=== PATIENT | male | born 1935 | race Caucasian/White ===

== ENCOUNTER 2017-05-31 04:04 | Inpatient (IN) ==
[2017-05-31] MEDS: NS 1,000 ML IV SCH ×2 (04:04→12:20)
[2017-05-31] MEDS: DiphenhydrAMINE 50 MG/ML INJECTION IVP PRN ×2 (04:35→08:46)
[2017-05-31] MEDS ORDERED: MORPHINE SULFATE 2 MG SYRINGE IVP PRN (04:38)
[2017-05-31] MEDS ORDERED: ONDANSETRON 4 MG/2 ML INJECTION IVP PRN (04:40)
[2017-05-31] MEDS ORDERED: FAMOTIDINE PB 20 MG/50 ML BAG IV SCH (06:00)
[2017-05-31] MEDS: ENOXAPARIN 40 MG/0.4 ML INJECTION SQ SCH ×2 (06:12→12:19)
[2017-05-31] MEDS: METHYLPREDNISOLONE SOD SUCC 125mg/2ml INJECTION IVP SCH ×2 (06:13→19:22)
[2017-05-31] MEDS: INSULIN REGULAR, HUMAN 100 UNIT/ML INJECTION SQ PRN ×3 (06:26→22:43)
[2017-05-31 06:38] VITALS: BMI 41.4
--- NOTE | 2017-05-31 10:10 | History & Physical Report ---
History of Present Illness Date: 05/31/17 Chief complaint: swollen tongue, hives HPI: The patient is a very pleasant 82-year-old male who was admitted last night and seen by the telemedicine hospitalist. An H&P was placed on the chart but not in the computer because of scheduled computer downtime. The patient states that he was in his normal state of health until yesterday morning. He noticed itching on his buttocks and hips and his place some calamine lotion. Then last evening he felt itchy all over, developed hives and had some diarrhea. He then noticed his tongue was swollen and it was difficult to speak. He went into the emergency room in [place] and was treated with 0.5 mg of IM epinephrine, Solu-Medrol 125 mg IV push, Pepcid 20 mg IV push and Benadryl 50 mg IV push. The patient stated that he immediately had cessation of his itching and within an hour his tongue felt back to normal. He was then transferred to [facility]U for continued treatment and monitoring. Here he was continued on Solu-Medrol, IV famotidine, and IV Benadryl. This morning he developed hives and itching again and was given 25 mg of IV Benadryl with resolution of symptoms. He has not had any further problems with tongue swelling since initial treatment last night. He has not taken any new medications other than a salve that was placed on his back where he had an insect bite 10-12 days ago. There was an open area present that his had been dressing. They thought it might of been a spider bite. When he developed itching yesterday he thought he might of had flea bites and his dogs were treated with oral medication recently for fleas. They did not receive a topical treatment. The patient is on lisinopril and metformin as well as aspirin daily. He uses some eyedrops in his ears recently but has used this before without difficulties. He is on multiple supplements, none of which are new. He states the diarrhea he had yesterday was not necessarily uncommon for him. He states he did eat a few bites of hamburger yesterday which she thought tasted bad. His only ate a few bites as well and they thought it might have been spoiled. The patient also states that when he fills his pill box once a week he sneezes. Otherwise he has not had any allergic problems and never had symptoms like this before. Review of Systems - Constitutional Comments: The patient admits to shortness of breath with activity. He states that he has chronic low back pain and it makes it painful for him to stand up straight when he walks. He has sleep apnea but does not use his CPAP more than 2 or 3 nights a week. He frequently has alternating constipation and diarrhea but does not take any medication for this. He has slow urination related to prostate enlargement and recent diagnosis of prostate cancer. His urologist did not recommend treatment for the prostate cancer. Otherwise complains of review of systems is negative other than the above in history of present illness. FOR[facility]LY [facility] Patient Stated Medical History Cataracts Yes Hypertension Yes Sleep Apnea Yes Diabetes Mellitus Type 2 Yes Medical History Updates: Hypertension. Type 2 diabetes mellitus on metformin. Morbid obesity. Obstructive sleep apnea for which he has a CPAP but only uses 2 or 3 nights a week. Chronic low back pain. Prostate cancer-not requiring treatment at this time Surgical History: Bilateral carpal tunnel surgery, bilateral total knee replacement, bilateral cataract surgery Family History: Sister of liver cancer and she had alcoholism No known family history of allergy problems or angioedema - Social History Smoking status: Never smoker Substance use type: does not use Alcohol intake frequency: other (rare alcohol use) Social history: Patient wants his to make medical decisions if he is unable to make them himself Medications Home Medications Medication Instructions Recorded Confirmed Type Ascorbic Acid (Vitamin C) 2,000 mg PO DAILY #0 tab 03/24/14 History Fish Oil/Dha/Epa [Fish Oil 1,200 1 each PO DAILY #0 cap 03/24/14 History mg Fish Oil] Ginkgo Biloba Extract (Ginkgo 60 mg PO DAILY #0 cap 03/24/14 History Biloba) Metformin HCl 850 mg PO BID #1 tab 03/24/14 History Saw [place] Fruit [Saw [place]] 1,800 mg PO BID #0 cap 03/24/14 History Docusate Sodium [Colace] 1 cap PO PRN #0 cap 06/11/14 History Lisinopril 1 tab PO DAILY #0 tab 06/11/14 History Aspirin [Aspir 81] 1 tab PO DAILY #0 tab 01/27/15 History Multivitamin (Daily Vitamin) 1 tab PO DAILY #0 01/27/15 History Acetaminophen 1 - 2 tab PO Q6H PRN #0 tab 01/28/15 History Allergies Allergy/AdvReac Type Severity Reaction Status Date / Time No Known Drug Allergies Allergy Unknown Verified 01/28/15 12:43 Exam Vital Signs: Temperature 98.7 F 05/31/17 08:00 Pulse Rate 77 05/31/17 08:30 Respiratory Rate 18 05/31/17 08:00 Blood Pressure 161/80 H 05/31/17 08:30 Pulse Oximetry 95 05/31/17 08:00 Oxygen Delivery Method Nasal Cannula Oxygen Flow Rate 2 Height/Weight/BMI: Height 1.73 m Weight 123.6 kg Body Mass Index 41.4 Comments: O2 sat is 91% on room air, blood pressure 161/80, GEN-alert, oriented, no acute distress. Speech is normal. He is in no acute distress. HEENT-sclera anicteric, oropharynx is moist, tongue does not appear enlarged, speech sounds normal NECK-supple CV-regular rate and rhythm CHEST-alert auscultation bilaterally ABD-soft, obese, nontender with positive bowel sounds -no [place] EXT-no edema NEURO-no focal deficits SKIN-warm and dry. Currently no hives or rashes. He does have a very small lightly erythematous spot on his back between his shoulder blades where he had what he thinks was an "insect bite" there is some mild surrounding erythema where he had a Band-Aid placed. He also has what appears to be a sebaceous cyst on his low back which is not erythematous or draining. Results - Labs CBC & Chem 7: 05/31/17 05:09 05/31/17 05:09 - ABG Interpretation ABG results: 05/31/17 05/31/17 05:09 06:10 VBG pH 7.420 H 7.370 VBG pCO2 32 L 42 VBG pO2 173 H 69 H VBG HCO3 21 L 24 VBG Total CO2 21.8 25.6 VBG O2 Saturation 100.0 93.0 VBG Base Excess -2.9 L -1.0 Assessment and Plan DVT Prophylaxis: Lovenox Resuscitation Status: Full Code Assessment and Plan: Impression Severe allergic reaction with angioedema and hives-most likely related to ERASTO inhibitor but cannot completely rule out other causes-currently the patient is markedly improved with treatment but did have itching and hives again this morning a couple of hours after his last IV Benadryl requiring another round of IV Benadryl. Type 2 diabetes Hypertension Morbid obesity Obstructive sleep apnea for which the patient is not compliant with CPAP Possible Mild chronic kidney disease, creatinine in [place] was 1.35 and today has improved to 1.0 Hyperkalemia this morning 5.1 Prolonged QT on EKG done at [place] Plan Switch to oral prednisone and DC Solu-Medrol. Switch to oral famotidine. We'll give scheduled oral Benadryl and when necessary IV Benadryl. Continue to monitor in CCU for now. Start Norvasc for hypertension. Encourage use of CPAP every night. Likely restart metformin. Recheck EKG regarding prolonged QT seen in [place]. Check hemoglobin A1c Discharge when allergic reaction symptoms have resolved Sepsis Assessment - Evaluation Sepsis screening result: No Definite Risk Hospital Course Summary Disclaimer: The visit summary below is not to be considered part of the above Progress Note.
[2017-05-31] MEDS: AMLODIPINE 5 MG TABLET PO SCH (12:17)
[2017-05-31] MEDS: PredniSONE 20 MG TABLET PO SCH (12:18)
[2017-05-31] MEDS: DiphenhydrAMINE 25 MG CAPSULE PO SCH ×2 (14:10→21:04)
[2017-05-31] MEDS ORDERED: HALOPERIDOL 1 MG TABLET PO PRN (17:37)
[2017-05-31] MEDS ORDERED: HALOPERIDOL 5 MG/ML INJECTION IVP PRN (17:37)
[2017-05-31] MEDS: FAMOTIDINE 20 MG TABLET PO SCH (21:04)
[2017-05-31] MEDS ORDERED: METOPROLOL 5mg/5ml INJECTION IVP PRN (21:38)
[2017-05-31] MEDS ORDERED: AMLODIPINE 5 MG TABLET PO SCH (21:45)
[2017-06-01] MEDS: DiphenhydrAMINE 50 MG/ML INJECTION IVP PRN (01:06)
[2017-06-01] MEDS: DiphenhydrAMINE 25 MG CAPSULE PO SCH ×4 (03:55→20:43)
[2017-06-01] MEDS: INSULIN REGULAR, HUMAN 100 UNIT/ML INJECTION SQ PRN ×3 (05:26→17:34)
[2017-06-01] MEDS ORDERED: CETIRIZINE 10 MG TABLET PO ONE (05:40)
--- NOTE | 2017-06-01 09:32 | Progress Note ---
Subjective: Events of yesterday and overnight noted. The patient's brought in his home meds and he took all of them yesterday including lisinopril without consulting with me or his nurse first. He had been previously told that we thought his lisinopril was the most likely cause of his angioedema and itchy hives. Yesterday, overnight and this morning he did have some episodes of hives with pruritus that resolved with IV Benadryl. He denies any further episodes of tongue swelling. He complains of a minimal scratchy sore throat but no feeling of throat swelling or difficulty breathing. He denies any shortness of breath or chest pain. He denies any headache. He states his chronic low back pain is gone. The prednisone is likely helping with his chronic pain. Objective Vital signs: Temperature 97.7 F 06/01/17 08:00 Pulse Rate 75 06/01/17 07:00 Respiratory Rate 17 06/01/17 07:00 Blood Pressure 164/86 H 06/01/17 07:00 Pulse Oximetry 95 06/01/17 07:00 Oxygen Delivery Method Nasal Cannula Oxygen Flow Rate 2 Height/Weight/BMI: Height 1.73 m Weight 123.6 kg Body Mass Index 41.4 Comments: GEN-alert, oriented, no acute distress HEENT-pupils equal, sclera anicteric, oropharynx is moist, tongue appears to be normal in size, speech sounds normal NECK-supple CV-regular rate and rhythm CHEST-clear to auscultation bilaterally ABD-soft, nontender, obese, positive bowel sounds -no [place] EXT-no edema NEURO-no focal deficits SKIN-warm and dry, currently no rashes Results - Labs CBC & Chem 7: 05/31/17 05:09 05/31/17 05:09 - ABG Interpretation ABG results: 05/31/17 05/31/17 05:09 06:10 VBG pH 7.420 H 7.370 VBG pCO2 32 L 42 VBG pO2 173 H 69 H VBG HCO3 21 L 24 VBG Total CO2 21.8 25.6 VBG O2 Saturation 100.0 93.0 VBG Base Excess -2.9 L -1.0 Assessment and Plan Assessment and Plan: 06/01/2017 Impression Severe allergic reaction with angioedema and hives-most likely related to ERASTO inhibitor but cannot completely rule out other causes-patient continues to have intermittent itching and hives but no further angioedema. The patient's did give him his home medications to take yesterday including his lisinopril without consulting staff. Type 2 diabetes-blood sugars mildly elevated (A1c 7.0 which shows good chronic control ) Hypertension-blood pressure elevated off of lisinopril Morbid obesity Obstructive sleep apnea for which the patient is not compliant with CPAP Possible Mild chronic kidney disease Hyperkalemia 5.1 Prolonged QT on EKG done at [place]-repeat EKG here shows mildly prolonged QT interval with QTC of 443 Plan Continue oral prednisone, oral famotidine, and oral Benadryl and continue when necessary IV Benadryl. Continue to monitor in CCU for now. Hopefully discharge tomorrow if no further angioedema and pruritus improved. Increase Norvasc for hypertension. Encourage use of CPAP every night-use O2 at night here if CPAP not available restart metformin for diabetes. Discharge when allergic reaction symptoms have resolved Walk-in halls with assist Sepsis Assessment - Evaluation Sepsis screening result: No Definite Risk Hospital Course Summary Disclaimer: The visit summary below is not to be considered part of the above Progress Note. Hospital Course: 05/31/2017 Impression Severe allergic reaction with angioedema and hives-most likely related to ERASTO inhibitor but cannot completely rule out other causes-currently the patient is markedly improved with treatment but did have itching and hives again this morning a couple of hours after his last IV Benadryl requiring another round of IV Benadryl. Type 2 diabetes Hypertension Morbid obesity Obstructive sleep apnea for which the patient is not compliant with CPAP Possible Mild chronic kidney disease, creatinine in [place] was 1.35 and today has improved to 1.0 Hyperkalemia this morning 5.1 Prolonged QT on EKG done at [place] Plan Switch to oral prednisone and DC Solu-Medrol. Switch to oral famotidine. We'll give scheduled oral Benadryl and when necessary IV Benadryl. Continue to monitor in CCU for now. Start Norvasc for hypertension. Encourage use of CPAP every night. Likely restart metformin. Recheck EKG regarding prolonged QT seen in [place]. Check hemoglobin A1c Discharge when allergic reaction symptoms have resolved
[2017-06-01] MEDS ORDERED: AMLODIPINE 10 MG TABLET PO SCH (09:33)
[2017-06-01] MEDS: PredniSONE 20 MG TABLET PO SCH (10:44)
[2017-06-01] MEDS: ENOXAPARIN 40 MG/0.4 ML INJECTION SQ SCH (10:45)
[2017-06-01] MEDS ORDERED: AMLODIPINE 10 MG TABLET PO ONE (10:45)
[2017-06-01] MEDS: FAMOTIDINE 20 MG TABLET PO SCH ×2 (10:45→20:43)
[2017-06-01] MEDS: METFORMIN 850 MG TABLET PO SCH ×2 (11:08→17:04)
[2017-06-01] MEDS: SALINE FLUSH 10ml SYRINGE IV PRN ×2 (11:09→17:08)
[2017-06-01 18:34] VITALS: RESP 18
[2017-06-01] MEDS: SAW PALMETTO 450 MG PO SCH (20:45)
[2017-06-02] MEDS: DiphenhydrAMINE 25 MG CAPSULE PO SCH ×2 (03:51→09:22)
[2017-06-02] MEDS: AMLODIPINE 5 MG TABLET PO SCH (03:53)
[2017-06-02] MEDS: FAMOTIDINE 20 MG TABLET PO SCH (09:22)
[2017-06-02] MEDS: ENOXAPARIN 40 MG/0.4 ML INJECTION SQ SCH (09:22)
[2017-06-02] MEDS: PredniSONE 20 MG TABLET PO SCH (09:22)
[2017-06-02] MEDS: SALINE FLUSH 10ml SYRINGE IV PRN (09:22)
[2017-06-02] MEDS: METFORMIN 850 MG TABLET PO SCH (09:22)
[2017-06-02] MEDS: SAW PALMETTO 450 MG PO SCH (09:23)
--- NOTE | 2017-06-02 10:17 | Discharge Summary ---
<Malena Lemus Melida - Last Filed: 06/02/17 10:33> Discharge Information Date of admission: 05/31/17 04:04 Anticipated date of discharge: 06/02/17 Attending Physician: Lucero Keys MD Primary care physician: Arelis Salazar MD - Discharge Diagnosis Discharge Diagnosis: Impression Severe allergic reaction with angioedema and hives-most likely related to ERASTO inhibitor but cannot completely rule out other causes-patient continues to have intermittent itching and hives but no further angioedema. The patient's did give him his home medications to take yesterday including his lisinopril without consulting staff. Type 2 diabetes-blood sugars mildly elevated (A1c 7.0 which shows good chronic control ) Hypertension-blood pressure elevated off of lisinopril Morbid obesity Obstructive sleep apnea for which the patient is not compliant with CPAP Possible Mild chronic kidney disease Hyperkalemia 5.1-resolved Prolonged QT on EKG done at [place]-repeat EKG here shows mildly prolonged QT interval with QTC of 443 - Procedures Procedures: None - Laboratory Labs: 06/01/17 10:29 06/01/17 10:29 - Radiology Radiology: None History of Present Illness HPI: The patient is a very pleasant 82-year-old male who was admitted last night and seen by the telemedicine hospitalist. An H&P was placed on the chart but not in the computer because of scheduled computer downtime. The patient states that he was in his normal state of health until yesterday morning. He noticed itching on his buttocks and hips and his place some calamine lotion. Then last evening he felt itchy all over, developed hives and had some diarrhea. He then noticed his tongue was swollen and it was difficult to speak. He went into the emergency room in [place] and was treated with 0.5 mg of IM epinephrine, Solu-Medrol 125 mg IV push, Pepcid 20 mg IV push and Benadryl 50 mg IV push. The patient stated that he immediately had cessation of his itching and within an hour his tongue felt back to normal. He was then transferred to [facility] CCU for continued treatment and monitoring. Here he was continued on Solu-Medrol, IV famotidine, and IV Benadryl. This morning he developed hives and itching again and was given 25 mg of IV Benadryl with resolution of symptoms. He has not had any further problems with tongue swelling since initial treatment last night. He has not taken any new medications other than a salve that was placed on his back where he had an insect bite 10-12 days ago. There was an open area present that his had been dressing. They thought it might of been a spider bite. When he developed itching yesterday he thought he might of had flea bites and his dogs were treated with oral medication recently for fleas. They did not receive a topical treatment. The patient is on lisinopril and metformin as well as aspirin daily. He uses some eyedrops in his ears recently but has used this before without difficulties. He is on multiple supplements, none of which are new. He states the diarrhea he had yesterday was not necessarily uncommon for him. He states he did eat a few bites of hamburger yesterday which she thought tasted bad. His only ate a few bites as well and they thought it might have been spoiled. The patient also states that when he fills his pill box once a week he sneezes. Otherwise he has not had any allergic problems and never had symptoms like this before. Objective Vital signs: Temperature 95.5 F L 06/02/17 07:00 Pulse Rate 61 06/02/17 08:00 Respiratory Rate 18 06/02/17 07:00 Blood Pressure 134/91 H 06/02/17 07:00 Pulse Oximetry 94 06/02/17 07:00 Oxygen Delivery Method Room Air Oxygen Flow Rate 2 Height/Weight/BMI: Height 1.73 m Weight 123.9 kg Body Mass Index 41.4 - Constitutional Present: no acute distress, well nourished, well developed, obese - Routine HEENT Exam Head: Present: normocephalic, atraumatic Eye: Present: EOMI, PERRL, normal accommodation ENT: Present: mucous membranes moist - Routine Respiratory Exam Present: CTA bilaterally. Absent: accessory muscle use, dyspnea, decreased breath sounds, rales, rhonchi, wheezes, crackles Comments: No stridor on ausc of upper airway. No wheezes, no SOA. - Routine Cardiovascular Exam Present: RRR, S1, S2, no murmur - Routine Abdominal Exam Present: soft, normoactive bowel sounds, non distended, non tender - Routine Extremities Exam Present: no edema, non tender, full ROM. Absent: cyanosis - Routine Back/Spine/Pelvis Exam Back/Spine: Present: full ROM - Routine Musculoskeletal Exam Musculoskeletal: Present: no clubbing or cyanosis, normal strength, no joint swelling, no tenderness - Routine Skin Exam Present: intact, erythema (Scattered facial redness and UE redness. No prominent rash observed. ), dry, warm - Routine Neurological Exam Present: alert, oriented X3, CN II-XII intact, moving all extremities - Routine Psychiatric Exam Present: normal affect, normal thought process, cooperative Hospital Course This is a general summary of the patient's hospital course. For more details refer to the complete medical record. Hospital course: 05/31/2017 Impression Severe allergic reaction with angioedema and hives-most likely related to ERASTO inhibitor but cannot completely rule out other causes-currently the patient is markedly improved with treatment but did have itching and hives again this morning a couple of hours after his last IV Benadryl requiring another round of IV Benadryl. Type 2 diabetes Hypertension Morbid obesity Obstructive sleep apnea for which the patient is not compliant with CPAP Possible Mild chronic kidney disease, creatinine in [place] was 1.35 and today has improved to 1.0 Hyperkalemia this morning 5.1 Prolonged QT on EKG done at [place] Plan Switch to oral prednisone and DC Solu-Medrol. Switch to oral famotidine. We'll give scheduled oral Benadryl and when necessary IV Benadryl. Continue to monitor in CCU for now. Start Norvasc for hypertension. Encourage use of CPAP every night. Likely restart metformin. Recheck EKG regarding prolonged QT seen in [place]. Check hemoglobin A1c Discharge when allergic reaction symptoms have resolved 06/02/17 Patient is feeling well today. No further SOA or cough. No difficulty swallowing. Denies oral swelling. Is anxious to return home and is agreeable for discharge. D/W Dr. Keys, chart reviewed for collateral information. Impression as above. Plan: Continue prednisone, H2RB, H1RB x 1 week. Pt. has been counselled not to drive on the benadryl. He was verbally instructed to continue the above medications. Also instructed to stop lisinopril and ASA. Will continue Amlodipine- BP is fairly well controlled. He will need to see his PCP this week for follow up. Resume remainder of home medications for DM2. SCr, K is normalized. He remains on [place] for urinary retention, multiple herbal supplements at home as well. May need further review of supplements as an outpt. Time spent with patient: discharge greater than 30 minutes DVT Prophylaxis: Lovenox GI Prophylaxis: Pepcid Discharge Plan - Med Rec/Dispo Referrals/Follow Up: Arelis Salazar MD [Family Provider] - 3 Days Additional Instructions: Stop Lisinopril and Aspirin. Please take all medications and herbs/vitamins to your next doctors appointment Prescriptions: New Amlodipine [Norvasc] 10 mg PO DAILY #30 tablet Famotidine [Pepcid] 20 mg PO BID 7 Days #14 tablet Metformin [Glucophage] 850 mg PO BIDWM tablet PredniSONE [Deltasone] 10 mg PO WB 11 Days #26 tablet DiphenhydrAMINE [Benadryl] 25 mg PO Q6HR 7 Days #42 capsule HydrOXYzine [Atarax] 25 mg PO Q4-6HPRN PRN #20 tablet PRN Reason: Itching Continue Vitamin C 500 mg PO DAILY Vitamin D3 1,000 mg PO DAILY Potassium 350 mg PO DAILY [place] 450 mg PO BID Acetaminophen 1 - 2 tab PO Q6H PRN #0 tab MDD 4000 mg PRN Reason: ARTHRITIS Fish Oil/Dha/Epa [Fish Oil 1,200 mg Fish Oil] 1,200 mg PO BID Metformin 850 mg PO BID Discontinued Chromium 200 mcg PO DAILY Aspirin [Low Dose Aspirin EC] 81 mg PO DAILY Cinnamon 1,000 mg PO BID Docusate Sodium [Colace] 1 cap PO PRN #0 cap Non-Formulary Medication 1,000 mg PO DAILY Lisinopril 20 mg PO DAILY [place] 300 mg PO BID Curcumin 1,500 mg PO BID Discharge Instructions/Outpatient Orders: Final Provider Discharge Instructions Location: Determined By Patient - Disposition 01 Discharged Home, Self-Care <Lucero Keys - Last Filed: 06/02/17 14:02> Discharge Information Date of admission: 05/31/17 04:04 Attending Physician: Lucero Keys MD Primary care physician: Arelis Salazar MD - Laboratory Labs: 06/01/17 10:29 06/01/17 10:29 Objective Vital signs: Temperature 95.9 F L 06/02/17 11:00 Pulse Rate 71 06/02/17 11:00 Respiratory Rate 18 06/02/17 11:00 Blood Pressure 162/96 H 06/02/17 11:00 Pulse Oximetry 96 06/02/17 11:00 Oxygen Delivery Method Room Air Oxygen Flow Rate 2 Height/Weight/BMI: Height 1.73 m Weight 123.9 kg Body Mass Index 41.4 Hospital Course This is a general summary of the patient's hospital course. For more details refer to the complete medical record. Hospital course: 06/02/2017-I reviewed this chart, the patient history, and the CASE MANAGER SPECIALIST's/PA's documented findings as above. We discussed and formulated the assessment and plan as above with the additions below.-Dr. Keys The patient is feeling well. He had mild itching on his forearm last night but did not require any medication and there was no hives. He's had no itching or hives today. He has had no swelling of his tongue since the evening of admission. He is breathing well. He feels a little bit sleepy with Benadryl. Otherwise, he is feeling well and has no complaints. On exam he is alert and oriented 3 and in no acute distress. Oropharynx reveals tongue to appear normal. Neck is supple. Chest is clear to auscultation. Cardiovascular reveals a regular rate and rhythm. Skin is warm and dry and without rashes. Coloring to his face is flushed but he states this is normal for him and has been unchanged during this hospital course. We'll dismiss to home today with his . He was informed not to drive if taking Benadryl since this can cause sedation. He is to use his CPAP at night and we discussed this today as well as on previous visits. His follow-up with Dr. Chan later this week. If he has any tongue swelling, lip swelling, throat swelling or difficulty breathing should call 911. If he is having recurrence of hives or itching he can take Atarax but if symptoms have not resolved he should call his doctor for instructions. I recommended to him that he should not take lisinopril or medications like lisinopril again. I will write him up prescription for a medical alert bracelet. At this time, I would not restart aspirin and he should follow-up with Dr. Chan to discuss whether aspirin should be restarted in the future. We'll discharge today to home with his . Addendum entered and electronically signed by Malena Lemus APRN 06/02/17 10:45 : No driving until cleared by PCP.
[2017-06-02 11:29] VITALS: BP 162/96; PULSE 71; TEMP 95.9; O2SAT 96
== END 2017-06-02 14:30 | disposition home or self-care (01) | DRG 916 ==
LOC: EDACCT# → CCU 04:04 → MED 06-01 18:28 → UNDODISIN 06-02 14:30
PROVIDERS: ADMIT Emergency Medicine; ATTEND Internal Medicine